=== PATIENT | male | born 2000 | race Caucasian/White ===

== ENCOUNTER 2019-09-30 16:15 | Emergency (ER) | payer BC, OTHER ==
[2019-09-30] MEDS ORDERED: Sodium Chloride 0.9% 10 ML Syringe FLUSH PRN (16:35)
[2019-09-30] MEDS ORDERED: LORazepam 2 MG/ML SDV IVPUSH ONE (16:36)
[2019-09-30] MEDS ORDERED: HYDROmorphone 1 MG/ML Syringe IVPUSH ONE (16:36)
[2019-09-30 17:05] VITALS: BP 144/81; PULSE 96
--- NOTE | 2019-09-30 17:33 | CR ---
[id number] RAD/RAD Shoulder Left 1V EXAM: RAD Shoulder Left 1V INDICATION: SHOULDER DISLOCATION COMPARISON: None. DISCUSSION: Anterior glenohumeral dislocation. There is a Hill-Sachs impaction fracture with mild fragmentation of the bone at the impaction site. The acromioclavicular joint appears maintained. No other osseous abnormality. IMPRESSION: Anterior shoulder dislocation. Chuckie Martinez MD 09/30/19 [id number] Thank you for allowing us to participate in the care of your patient.
--- NOTE | 2019-09-30 17:34 | CR ---
[id number] RAD/RAD Shoulder Left 1V EXAM: RAD Shoulder Left 1V INDICATION: POST REDUCTION. COMPARISON: 4:34 PM same date. DISCUSSION: Interval reduction of a glenohumeral dislocation. Prominent Hill-Sachs impaction fracture with mild fragmentation of the bone at the impaction site. No other osseous abnormality. IMPRESSION: 1. Interval reduction of an anterior shoulder dislocation. Chuckie Martinez MD 09/30/19 1735 Thank you for allowing us to participate in the care of your patient.
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
== END 2019-09-30 17:39 | disposition home or self-care (01) ==
LOC: VM.ED 16:15
DX: S43.015A Anterior dislocation of left humerus, initial encounter (principal); W16.42XA Fall into unspecified water causing other injury, initial encounter; Y93.17 Activity, water skiing and wake boarding
CPT/HCPCS: 23650; 73020; 96374; 96375; 99283; J1170; J2060